=== PATIENT | female | born 1980 | race Caucasian/White ===

== ENCOUNTER 2017-04-29 21:37 | Emergency (ER) | payer SELFPAY ==
[~2017-04-29] VITALS: Ht 172.7 cm; Wt 72.7 kg
--- NOTE | 2017-04-29 21:53 | Emergency Room Report ---
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 N Clinical Suspician of Infection? N Mental Status: 1 - Regular (Normal Baseline) Sepsis Risk:Low Sepsis Risk Have you (or family members/close friends) recently traveled outside the [place]? N If Yes, where/when: Have you had exposure to infectious disease within the past month? N TB? Other? 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 Respiratory denies cough, denies shortness of breath, denies wheezing Cardiovascular denies chest pain, denies palpitations, denies syncope Gastrointestinal see HPI, abdominal pain, diarrhea, nausea, denies vomiting Genitourinary denies: dysuria, frequency, hesitancy, hematuria. Musculoskeletal denies back pain, denies joint pain, denies joint swelling, denies neck pain Skin denies rash Psychiatric/Neurological denies headache, denies seizure Physical Exam Vital Signs Vital Signs Date Time Temp Pulse Resp B/P Pulse O2 O2 Flow FiO2 Ox Delivery Rate 04/29 2142 98.9 75 18 143/83 96 - WBC >12,000 or <4,000 or 10% bands? 2 or more SIRS Criteria Met? B/P:143/83 MAP:103 Creatinine >2.0? UA output<0.5ml/kg/hr for 2 hrs? Platelet count >100,000? Lactate >2.0mmol/1? INR >1.2 or PTT > than 60 sec? Evidence of Organ Dysfunction? Provider documented clinical suspician of infection? N Sepsis Criteria Count: 0 Sepsis Risk: Low Sepsis Risk General Appearance no apparent distress Eye Exam - bilateral eye PERRL, bilateral eye EOMI Comment no icterus Ear, Nose, Throat normal ENT inspection Neck supple Respiratory Status No: respiratory distress. Lung Sounds bilateral: lungs clear. 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 No Results/Orders Laboratory Tests 04/29/17 2215: Sodium 141, Potassium 4.0, Chloride 107, Carbon Dioxide 25, BUN 13, Creatinine 0.7, Estimated Creat Clear 128, Estimated GFR (MDRD) 95, Glucose 96, Calcium 9.0 , Total Bilirubin 0.4, AST 23, ALT 21, Alkaline Phosphatase 64, Total Protein 7.2, Albumin 3.9, Globulin 3.3 H, Albumin/Globulin Ratio 1.2, Amylase 45, Lipase 163, WBC 3.5 L, RBC 5.03, Hgb 13.5, Hct 41.8, MCV 83.2, RDW 13.1, Plt Count 174, MPV 7.2 L, Gran % 53.5, Gran # 1.9, Lymphocytes % 31.9, Monocytes % 9.5 H, Eosinophils % 4.8, Basophils % 0.2, Lymphocytes # 1.1, Monocytes # 0.3, Eosinophils # 0.2, Basophils # 0.0, PUBS MCHC 32.4, MCH 26.9 L 04/29/17 2141: Urine Color YELLOW, Urine Appearance CLEAR, Urine pH 5.5, Ur Specific [place] <= 1.005, Urine Protein NEGATIVE, Urine Ketones NEGATIVE, Urine Blood 3+ H, Urine Nitrate NEGATIVE, Urine Bilirubin NEGATIVE, Urine Urobilinogen 0.2, Ur Leukocyte Esterase NEGATIVE, Urine RBC 5-10, Urine WBC OCC, Amorphous Sediment TRACE, Urine Glucose NEGATIVE Current Medication Orders Sig/Anni Start time Last Medication Dose Route Stop Time Status Admin Famotidine 20 MG ONCE ONE 04/29 2300 DC /08 IV 04/29 230 2254 Ondansetron HCl 4 MG ONCE ONE 04/29 2300 DC /08 IV / 230 2254 Sodium Chloride 8 ML ONCE ONE 04/29 2300 DC 07/08 IV 04/29 230 2255 Famotidine 0 .STK-MED ONE 04/29 225 DC IV Ondansetron HCl 0 .STK-MED ONE 04/29 2253 DC .ROUTE Sodium Chloride 1,000 ML .Q1H1M 04/29 2230 DC 04/29 IV 04/29 233 2228 Sodium Chloride 10 ML PRN PRN 04/29 2230 AC IV 04/30 2216 Sodium Chloride 1,000 ML .STK-MED ONE 04/29 2227 DC IV Sodium Chloride 10 ML PRN PRN 04/29 2200 AC IV 04/30 2154 Orders Procedure Date/time Status DIET-NOTHING BY MOUTH 04/30 B Active IV SALINE LOCK 04/29 2154 Active URINALYSIS/COMPLETE 04/29 2154 Complete URINE 04/29 2154 Complete LIPASE 04/29 2154 Complete DIARRHEA PANEL, PCR 04/29 2154 Active COMPLETE METABOLIC PANEL 04/29 2154 Complete CBC WITH AUTO DIFF 04/29 2154 Complete AMYLASE 04/29 2154 Complete Progress ED Progress Notes Date 04/29/17 Time 2336 Comment better Departure Departure Time of Disposition 2335 Disposition DC Home or Self Care(routine) Clinical Impression Primary Impression: Abdominal pain Qualifiers: Abdominal location: epigastric Qualified Code: R10.13 - Epigastric pain Condition STABLE Patient Instructions DI for Vomiting -- Adult Additional Instructions fluids and rechek if any problems Discharge Counseling Counseled pt/family regarding diagnosis, test results, follow up needs ED Critical Care Critical Care No at 2336
--- OUTSIDE RECORDS SUMMARY | 2017-04-29 22:02 | External Medical Summary Rpt ---
Author Author [employer] Organization [employer] Address Unknown Phone Unavailable Purpose Continuity of Care Document - through 2016
--- OUTSIDE RECORDS SUMMARY | 2017-04-29 22:02 | External Medical Summary Rpt ---
Author Author [employer] Address Unknown Phone [email or web address] Purpose Continuity of Care Document - through 2016
--- OUTSIDE RECORDS SUMMARY | 2017-04-29 22:02 | External Medical Summary Rpt ---
Demographics Preferred Language Italian Marital Status Unknown Cheondoism Affiliation Unknown Race Unknown Ethnic Group Unknown Author Author [facility] Address Unknown Phone Immunization No patient found.
--- OUTSIDE RECORDS SUMMARY | 2017-04-29 22:02 | External Medical Summary Rpt ---
Demographics Preferred Language Hungarian Marital Status Unknown Restoration Affiliation Unknown Race Unknown Ethnic Group Unknown Author Author [facility] Address Unknown Phone Immunization No patient found.
--- OUTSIDE RECORDS SUMMARY | 2017-04-29 22:02 | External Medical Summary Rpt ---
Author Author [employer] Address Unknown Phone [email or web address] Purpose Continuity of Care Document - through 2016
--- OUTSIDE RECORDS SUMMARY | 2017-04-29 22:02 | External Medical Summary Rpt ---
Author Author [employer], [employer] Organization [employer] Address Unknown Phone Unavailable
[2017-04-29 22:03] LABS: URINE BILIRUBIN - DIPSTICK NEGATIVE (NEG); URINE BLOOD 3+ (NEG)
[2017-04-29 22:17] LABS: HEMOGLOBIN 13.5 g/dL (12.2-16.2); LYMPH # 1.1 K/mm3 (0.7-4.5); LYMPH % 31.9 % (10-50.0)
[2017-04-29 23:44] VITALS: BP 143/83
== END 2017-04-29 23:45 | disposition home or self-care (01) ==
LOC: ER 21:37
PROVIDERS: Emergency Medicine
DX: R10.13 Epigastric pain (principal)
CPT/HCPCS: J2405